=== PATIENT | male | born 1965 | race Caucasian/White ===

== ENCOUNTER → 2021-07-03 | Outpatient (CLI) | payer SELFPAY ==
--- NOTE | 2021-07-03 10:12 | Diagnostic Imaging Report ---
INDICATION: Hyperlipidemia. Calcium scoring. See separate calcium scoring report. FINDINGS: Review of the mediastinum and lungs were visualized from the akira to the dome of the diaphragm. The lateral right lung and posterior portions of the lungs are not present on the exam. The portion of the lungs visualized is clear. No infiltrates or parenchymal nodules are demonstrated. No pericardial effusions. There is a dense calcified azygous lymph node measuring 2 x 1.7 cm. No other adenopathy is demonstrated. IMPRESSION: Calcified granulomatous lymph node in the mediastinum. No worrisome features are seen. Dictated by: Dictated on workstation # [id number]
== END ==
LOC: RAD FS 09:12
PROVIDERS: ATTEND Family Medicine
DX: Z00.00 Encounter for general adult medical examination without abnormal findings (principal); E78.2 Mixed hyperlipidemia; I89.8 Other specified noninfective disorders of lymphatic vessels and lymph nodes
CPT/HCPCS: 75571